=== PATIENT | female | born 1990 | race Two or more races ===

== ENCOUNTER 2017-04-11 15:28 | Emergency (ER) | payer SELFPAY ==
[~2017-04-11] VITALS: Ht 165.1 cm; Wt 73.9 kg
[2017-04-11 15:34] VITALS: BP 130/77
== END 2017-04-11 22:25 | disposition left against medical advice (07) ==
LOC: ER 15:34
DX: R05 Cough (principal); Z53.21 Procedure and treatment not carried out due to patient leaving prior to being seen by health care provider
CPT/HCPCS: 71046